=== PATIENT | female | born 1970 | race Hispanic/Latino ===

== ENCOUNTER 2016-12-02 08:05 | Day surgery (SDC) | payer OTHER ==
--- NOTE | 2016-11-29 14:57 | Anesthesia Consultation ---
Anesthesia Consult and Med Hx Date of service: 12/02/16 - Airway Anesthetic Teeth Evaluation: Good ROM Head & Neck: Adequate Mental/Hyoid Distance: Adequate Mallampati Class: Class II Intubation Access Assessment: Good - Pulmonary Exam CTA: Yes - Cardiac Exam Cardiac Exam: RRR - Pre-Operative Health Status ASA Pre-Surgery Classification: ASA2 Proposed Anesthetic Plan: General - Pulmonary Hx Sleep Apnea: Yes (mild, no CPAP) - Cardiovascular System Hx Hypertension: Yes (dx this year) Hx Cardia Arrhythmia: Yes - Central Nervous System Hx Psychiatric Problems: No - Hematic Hx Anemia: Yes - Other Systems Hx Cancer: No
[2016-11-29 15:01] LABS: Basophils % (Auto) 0.3 % (0.0-1.8); Hematocrit 39.2 % (30.3-42.9); Hemoglobin 13.1 gm/dl (10.1-14.3); Mean Corpuscular HGB Conc 34 % (30-34); Mean Corpuscular Hemoglobin 31 pg (28-32); Mean Corpuscular Volume 92 fl (79-97); Platelet Count 237 K/mm3 (140-440); Red Blood Count 4.27 M/mm3 (3.65-5.03); Red Cell Distribution Width 13.7 % (13.2-15.2); White Blood Count 7.2 K/mm3 (4.5-11.0)
[2016-11-29 15:19] LABS: Anion Gap 15 mmol/L; BUN/Creatinine Ratio 34.28; Blood Urea Nitrogen 24 mg/dL (7-17); Calcium 9.5 mg/dL (8.4-10.2); Carbon Dioxide 27 mmol/L (22-30); Chloride 102.1 mmol/L (98-107); Glucose 94 mg/dL (65-100); Potassium 4.2 mmol/L (3.6-5.0); Sodium 140 mmol/L (137-145)
--- NOTE | 2016-12-01 23:29 | History and Physical Report ---
History of Present Illness Date of examination: 11/29/16 History of present illness: Patient has been reassessed/reevaluated. H&P has been reviewed. No interval changes. This is a 46 years old female who presents with menstrual disorder. She complains of irregular menses and mid-cycle spotting, but denies heavy bleeding , lack of menses, dysmenorrhea, clotting, history of ovarian cysts, history of thyroid disease, history of fibroids, history of PCOS, history of bleeding disorder, lightheadedness, fatigue and cramping. no resolution wth Mirena Patient desires definitive treatment .Patient desires least invasive therapy Vital Signs: Patient Profile: 46 Years Old Female LMP: 11/21/2016 Height: 62 inches (157.48 cm) Weight: 180 pounds (81.82 kg) BMI: 32.92 BSA: 1.83 BP sittin(left arm) Vitals Entered By: Florecita Sadler (November 28, 2016 1:46 PM) Menstrual History: LMP (date): 11/21/2016 Current Method of Contraception: None Past History : 3 Term Births: 1 Premature Births: 1 Living Children: 2 Para: 2 Prev : 2 Aborta: 1 Spont. 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 of genital herpes: no Partner hx. of genital herpes: no Rash/viral illness since LMP: no Hx of STD: None Active Medications (reviewed today): FLAGYL 500 MG TABS (METRONIDAZOLE) one by mouth twice a day TERAZOL 7 0.4 % CREA (TERCONAZOLE) apply qhs x 7 DIFLUCAN 150 MG TABS (FLUCONAZOLE) 1 po now URIBEL CAPS (METH-HYO-M BL-NA PHOS-PH CHRIS CAPS) VALSARTAN 80 MG ORAL TABS (VALSARTAN) DILTIAZEM HCL 120 MG ORAL TABS (DILTIAZEM HCL) ELMIRON 100 MG ORAL CAPS (PENTOSAN POLYSULFATE SODIUM) Current Allergies (reviewed today): No known allergies Past Medical History: Plantar Fascitis Arrhythmia (2016) A. FIB Interstitial Cystitis (2016) Past Surgical History: Reviewed history from 09/29/2015 and no changes required: x2 Breast Biopsy: (09/28/2015) Social History: Reviewed history from 01/21/2010 and no changes required: Patient is Risk Factors: Smoked Tobacco Use: Never smoker Smokeless Tobacco Use: Never Passive smoke exposure: no Drug use: no HIV high-risk behavior: no Alcohol use: no Exercise: no Seatbelt use: 100 % Review of Systems General Complains of fatigue. Denies fever, chills, sweats, anorexia, weakness, malaise, weight loss and sleep disorder. Complains of abnormal vaginal bleeding. Denies vaginal discharge, incontinence, dysuria, hematuria, urinary frequency, amenorrhea, menorrhagia, pelvic pain, genital sores, decreased libido , painful periods, painful sex, urinary urgency, hot flashes, vaginal dryness, vaginal itching and vaginal odor. CV Denies chest pains, palpitations, syncope, dyspnea on exertion, orthopnea, PND and peripheral edema. Resp Denies cough, dyspnea at rest, excessive sputum, hemoptysis, wheezing and pleurisy. GI Denies nausea, vomiting, diarrhea, constipation, change in bowel habits, abdominal pain, melena, hematochezia, jaundice, gas/bloating, indigestion/ heartburn, dysphagia and odynophagia. Breast Denies left breast lump, right breast lump, nipple discharge, bloody discharge from nipple, breast pain, abnormal mammogram and breast enlargement. Psych Denies depression, anxiety, irritability and mood swings. Past History Past Medical History: other (See HPI) Past Surgical History: Other (See HPI) Social history: other (See HPI) Family history: other (See HPI) Medications and Allergies Allergies Allergy/AdvReac Type Severity Reaction Status Date / Time No Known Allergies Allergy Unverified 11/28/16 15:36 Home Medications Medication Instructions Recorded Confirmed Last Taken Type Aspirin [Adult Low Dose Aspirin EC] 81 mg PO DAILY 11/28/16 12/02/16 11/29/16 History Diltiazem HCl [Cardizem LA] 120 mg PO DAILY 11/28/16 11/28/16 12/02/16 07:00 History Ferrous Sulfate [Feosol] 325 mg PO QDAY 11/28/16 11/28/16 12/01/16 History Fluconazole [Diflucan TAB] 100 mg PO QDAY 11/28/16 11/28/16 12/01/16 History Pentosan (Nf) [Elmiron (Nf)] 100 mg PO TIDAC 11/28/16 11/28/16 12/01/16 History Valsartan 80 mg PO DAILY 11/28/16 11/28/16 12/02/16 07:00 History Active Meds: Active Medications Famotidine (Pepcid) 20 mg PO PREOP NR Stop: 12/02/16 23:00 Lactated Ringer's (Lactated Ringers) 1,000 mls @ 100 mls/hr IV DIRECT ANUSHA Stop: 12/02/16 23:00 Midazolam HCl (Versed) 2 mg IV PREOP NR Stop: 12/02/16 07:01 Exam - Physical Exam Narrative exam: HEENT: normocephalic, no lesions or deformities Neck/Thyroid: supple, thyroid normal Skin no ulcers, xanthomas Chest: respiratory effort normal, clear to auscultation Breasts: no masses or nipple discharge CV: regular, normal S1-S2, no murmur, no rub, no gallop Abdomen: normal bowel sounds, soft, nontender, no HSM Well healed pfannenstiel scar Musculoskeletal: grossly normal ROM in joints, no joint tenderness or muscle weakness Neuro: no gross anomalities Extremities: normal alignment, no joint enlargement, crepitus, masses or tenderness; normal tone and strength 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 Exams Vulva/Vagina: Small amount blood in vault Cervix: normal appearance, no lesions, no discharge short IUD string seen Uterus: normal position, midline, mobile Adnexae: no masses or tenderness Rectovaginal: exam defered - Constitutional Vitals: Temp Pulse Resp BP Pulse Ox 98.1 F 70 16 150/90 11/29/16 14:30 11/29/16 14:30 11/29/16 14:30 11/29/16 14:30 Results - Labs CBC & Chem 7: 11/29/16 14:15 11/29/16 14:15 Assessment and Plan - Patient Problems (1) Menorrhagia Current Visit: Yes Status: Acute Qualifiers: Menorrahagia type: with irregular cycle Qualified Code(s): N92.1 - Excessive and frequent menstruation with irregular cycle Plan to address problem: Medical and surgical treatment options discussed Patient desires definitive treatment Discussed risk of surgery including infection, bleeding and risk of perforating her uterus. Questions answered. Patient understands and desires to proceed The patient was instructed/informed the following:
[~2016-12-02 08:05] MED LIST: LACTATED RINGERS 1,000 ML IV SCH; PEPCID PO NR; VERSED IV NR
[2016-12-02] MEDS ORDERED: VERSED IV NR (09:00)
[2016-12-02] MEDS ORDERED: DIPRIVAN 10 MG/ML IV ONE (10:45)
[2016-12-02] MEDS ORDERED: SUBLIMAZE ONE (10:45)
--- NOTE | 2016-12-02 11:03 | Anesthesia Day of Surgery ---
Anesthesia Day of Surgery - Day of Surgery Patient Examined: Yes Patient H&P Reviewed: Yes Patient is NPO: Yes
[2016-12-02] MEDS ORDERED: NACL 0.9% IR ONE (11:07)
[2016-12-02] MEDS ORDERED: XYLOCAINE MPF 2% ONE (11:30)
[2016-12-02] MEDS ORDERED: DECADRON ONE (11:30)
[2016-12-02] MEDS ORDERED: ZOFRAN ONE (11:30)
[2016-12-02] MEDS ORDERED: TORADOL ONE ×2 (11:30→12:06)
[2016-12-02] MEDS ORDERED: ePHEDrine SULFATE ONE (11:32)
[2016-12-02] MEDS ORDERED: LACTATED RINGERS 1,000 ML ONE (11:36)
--- NOTE | 2016-12-02 12:06 | Short Stay Summary ---
Short Stay Documentation Date of service: 12/02/16 - History H&P: dictated Past Medical History: other (See HPI) Past Surgical History: Other (See HPI) Social history: other (See HPI) - Allergies and Medications Current Medications: Allergies No Known Allergies Allergy (Unverified 11/28/16 15:36) Home Medications Medication Instructions Recorded Confirmed Last Taken Type Aspirin [Adult Low Dose Aspirin EC] 81 mg PO DAILY 11/28/16 12/02/16 11/29/16 History Diltiazem HCl [Cardizem LA] 120 mg PO DAILY 11/28/16 11/28/16 12/02/16 07:00 History Ferrous Sulfate [Feosol] 325 mg PO QDAY 11/28/16 11/28/16 12/01/16 History Fluconazole [Diflucan TAB] 100 mg PO QDAY 11/28/16 11/28/16 12/01/16 History Pentosan (Nf) [Elmiron (Nf)] 100 mg PO TIDAC 11/28/16 11/28/16 12/01/16 History Valsartan 80 mg PO DAILY 11/28/16 11/28/16 12/02/16 07:00 History Acetaminophen/Codeine [Tylenol #3] 1 tab PO Q4HR PRN #20 tablet 12/02/16 Unknown Rx Doxycycline [Vibramycin CAP] 100 mg PO Q12HR #14 capsule 12/02/16 Unknown Rx Ibuprofen [Motrin 800 MG tab] 800 mg PO Q6H PRN #30 tablet 12/02/16 Unknown Rx Active Medications Famotidine (Pepcid) 20 mg PO PREOP NR Stop: 12/02/16 23:00 Last Admin: 12/02/16 08:48 Dose: 20 mg Lactated Ringer's (Lactated Ringers) 1,000 mls @ 100 mls/hr IV DIRECT ANUSHA Stop: 12/02/16 23:00 Last Admin: 12/02/16 09:00 Dose: 100 mls/hr - Brief post op/procedure progress note Date of procedure: 12/02/16 (see dictated note) - Hospital course Hospital course: Patient was admitted underwent the above him procedure without any complications. Patient will be discharged with follow-up in office in 1-2 weeks for postop check. - Disposition Condition at discharge: Good Disposition: [id number] TO HOME OR SELFCARE - Discharge Diagnoses (1) Menorrhagia Status: Acute Qualifiers: Menorrahagia type: with irregular cycle Qualified Code(s): N92.1 - Excessive and frequent menstruation with irregular cycle Short Stay Discharge Plan Activity: advance as tolerated Diet: regular Follow up with: JONG LINTON MD [Primary Care Provider] - 7 Days Prescriptions: Ibuprofen [Motrin 800 MG tab] 800 mg PO Q6H PRN #30 tablet PRN Reason: Pain Acetaminophen/Codeine [Tylenol #3] 1 tab PO Q4HR PRN #20 tablet PRN Reason: Pain Doxycycline [Vibramycin CAP] 100 mg PO Q12HR #14 capsule
--- NOTE | 2016-12-02 12:08 | Operative Report ---
Operative Report Operative Report: Date of procedure: 12/02/2016 Pre-operative diagnosis: Menometrorrhagia Post-operative diagnosis: Same Procedure name(s): Marilyn endometrial ablation with hysteroscopy and removal of Mirena IUD Surgeon: Mik Yanes MD Attendant Child Activity: None Anesthesia: General EBL: Minimal Complications: None Findings: IUD string was seen through the cervical os uterus approximately 8 weeks size. Post procedure good burn throughout intrauterine cavity Specimen(s): Mirena IUD Procedure: Procedure: Patient was brought to operating room. Where general anesthesia was induced on difficulty. She was placed in the dorsal lithotomy position. Prepped and draped in usual sterile manner. Urinary bladder was emptied with a red rubber catheter. Speculum was placed in the vagina. The IUD was removed with uterine forceps without any complications. The cervical length and uterine cavity was then assessed with a sound provided with some marilyn. Cervical length was 4.0 cm the total uterine cavity was 9 cm. The Marilyn was then placed through the cervical os . After passing the testing for cavity integrity, the ablation was then started. The procedure lasted 120 seconds. The Marilyn was then removed. There was large amount of tissue on the array. Post procedure hysteroscopy showed a complete cavity ablation. Our instruments are removed. The patient tolerated the procedure well and was awakened in the operating room. Patient was escorted to the recovery room in good condition
[2016-12-02] MEDS ORDERED: TYLENOL #3 PO ONE (12:36)
--- NOTE | 2016-12-02 13:34 | Post Anesthesia Evaluation ---
- Post Anesthesia Evaluation Patient Participated: Yes Airway Patent: Yes Stable Respiratory Function: Yes Nausea/Vomiting: No Temp > 96.8F: Yes Pain Manageable: Yes Adequeate Hydration: Yes Anesthesia Complications: No Block Receding Appropriately: Not Applicable Patient on Ventilator: No
[2016-12-02] MEDS ORDERED: TYLENOL #3 PO SCH (14:25)
[2016-12-02 15:57] VITALS: BP 130/69
== END 2016-12-02 15:26 | disposition home or self-care (01) ==
LOC: OR 08:05
PROVIDERS: ATTEND Obstetrics & Gynecology
DX: N92.1 Excessive and frequent menstruation with irregular cycle (principal); I48.91 Unspecified atrial fibrillation; I10 Essential (primary) hypertension; E28.2 Polycystic ovarian syndrome; D64.9 Anemia, unspecified; Z79.82 Long term (current) use of aspirin; Z79.899 Other long term (current) drug therapy; Z98.890 Other specified postprocedural states
CPT/HCPCS: 36415; 58301; 58563; 80048; 82962; 84703; 85025; 88300; A4217; J1100; J1885; J2250; J2405; J2704; J3010; J7120; 88302